=== PATIENT | female | born 1975 | race Caucasian/White ===

== ENCOUNTER 2025-03-11 11:47 | Day surgery (SDC) | payer OTHER, SELFPAY ==
[2025-03-09 08:07] VITALS: BMI 26.4
[2025-03-11] VITALS (15 sets, daily range): BP systolic 105–124; BP diastolic 56–92; PULSE 71–102; RESP 10–20; TEMP 36.3–37.3; O2SAT 94–100; BMI 25.8
[2025-03-11] MEDS: LACTATED RINGERS 1,000 ML 42 ML IV (13:07)
--- NOTE | 2025-03-11 13:21 | PM.PREOP ---
Pre-operative Note Interval Note History & Physical reviewed/Exam performed by Physician: Yes Changes to H&P: No H&P completed within 30 days and has changed as indicated here:: see H&P from 03/02/25; procedure consented for is TVH/BS with possible anterior repair, possible posterior repair, possible apical suspension, with midurethral sling
[2025-03-11] MEDS: CEFAZOLIN 2 GM/100 ML PREMIX 100 ML IV (14:42)
--- NOTE | 2025-03-11 14:58 | SUR.OPER ---
Lithotomy on padded OR bed. Selma Pad Positioner under torso. Head on pillow, arms padded and tucked at sides. Legs secured in padded yellow fins stirrups.
[2025-03-11] MEDS: LIDOCAINE 1% W/EPI 10ML 20 ML INJ ×2 (15:11→16:05)
--- NOTE | 2025-03-11 17:13 | P.OP_ITS ---
Operative Date/Time/Diagnoses Date of procedure: 03/11/25 Time of procedure: 15:00 Pre-op diagnosis: Abnormal uterine bleeding Presumed adenomyosis Uterine fibroids Stage 2 pelvic organ prolapse Stress urinary incontinence Post-op diagnosis: same Procedure & Clinicians Procedure: Total vaginal hysterectomy Bilateral salpingectomy Midurethral sling Cystoscopy Posterior colporrhaphy Same procedure as scheduled: Yes Indications: 49yo F with AUB-A/L, stage 2 POP, and KOJO, counseled and consented for the above procedures. Surgeon: Janice Alicea Heel Cementer Machine: Devan Hooper Click Yes if Unassisted: No Anesthesia Type: General Operative Notes Findings: 12wk sized uterus with normal appearing bilateral fallopian tubes with benign appearing paratubal cysts. Cystoscopy: normal bladder mucosa, bilateral efflux of urine from ureteral orifices, no evidence of retained suture or defects in the bladder Specimen(s): none sent (patient declined pathology evaluation and requested to keep her specimen) Applied: catheter Estimated Blood Loss (mL): 100 Blood products transfused: none Procedure in detail: The risks, benefits, indications and alternatives of the procedure were reviewed with the patient and informed consent was obtained. The patient was taken to the operating room where general anesthesia was obtained without difficulty. The pt was then placed in the high lithotomy position using Tigre stirrups. Sequential compression devices were placed bilaterally for VTE prophylaxis. Pt was then prepped and draped in the sterile fashion and a Cedillo catheter was placed. A weighted speculum was placed in the patient?s vagina and the cervix was visualized. A double-toothed tenaculum was used to grasp the anterior and posterior lips of the cervix. 10cc of 1% lidocaine with epinephrine was then injected circumferentially in the cervix for hydrodissection. The cervix was then incised circumferentially superficially using the Bovie cautery. The posterior fornix was grasped with pick-ups and the abdominal cavity was entered posteriorly with Morrison scissors. The posterior peritoneum was then tagged to the vaginal mucosa with 0-Vicryl. The weighted speculum was then placed in the posterior cul-de-sac for adequate visualization while displacing the rectum. The uterosacral ligaments were then clamped with David clamps on both sides, transected, and suture ligated with 0-Vicryl bilaterally. The anterior vaginal mucosa was then dissected off the cervix sharply. An attempt at entering the anterior cul-de-sac with Metzenbaum scissors was performed, but unsuccessful as there was still a significant amount of vaginal mucosa present anteriorly. Decision was made to proceed with mobilization of the uterus and cervix instead. The cardinal ligaments were clamped with Ligasure impact on both sides, cauterized and cut. After additional mobility was achieved, attention was then redirected to the anterior cul-de-sac, which was entered with sharp dissection. Pedicles were cauterized and cut serially bilaterally to continue removal of the uterus. To achieve better mobilization, the uterus was bivalved. The right cornua was then visualized, clamped with a David clamp, then suture ligated. The right uterus/cervix was then removed. The right fallopian tube was visualized, and was removed with the Ligasure. The left uterine cornua was then visualized, clamped with a David clamp, then suture ligated. The left uterus/cervix subsequently delivered without difficulty. The left fallopian tube was visualized, and was removed with the Ligasure. Reinspection of all pedicles revealed adequate hemostasis. The vaginal cuff was then closed using [id number] sutures of 0-vicryl, ensuring that the peritoneum was incorporated. The pedicles of the uterosacral ligaments were incorporated into the vaginal cuff closure. Inspection of the cuff assured hemostasis. Given the patient's findings of genuine stress incontinence, attention was turned to the TVT procedure. Local anesthetic was injected suprapubically into the skin and retropubic space on both sides of the midline. Using gentle traction on the Cedillo catheter to identify the bladder neck, local anesthetic was injected into the vaginal mucosa and submucosal tissues in the midline and bilaterally at the level of the mid urethra. A 2 cm sagittal incision was then made in the midline of the anterior vaginal wall 1 cm proximal to the external urethral meatus. The Metzenbaum scissors were then used to free the vaginal wall from the urethra and develop a small paraurethral space bilaterally. The needle tip of the TVT device attached to the introducer was inserted into the previously developed paraurethral space on the patient's right side.? The needle was angulated slightly laterally and the endopelvic fascia was perforated just behind the inferior surface of the pubic symphysis.? The handle of the introducer was dropped and the needle guided medially up through the abdominal wall. The same procedure was then completed on the patient's left side. The Cedillo catheter was then removed and cystoscopy was performed to exclude unintentional bladder perforation.? After bladder integrity was confirmed, the introducers were passed completely through the abdominal incisions.? After passage of the needles was completed, a hemostat was inserted between the suburethral portion of the tape and the urethra.? Gentle traction on the ab dominal ends of the tape relieved any excess tape material and brought the tape into contact with the instrument.? With the hemostat between the urethra and the tape, the plastic sheet was removed in the usual fashion. After removal of the sheath, a 1-2 mm space between the tape and urethra was noted. The mesh was then trimmed at the abdominal wall, and the incisions were covered with Dermabond. The vaginal mucosa was then closed with a running 2-0 vicryl suture. Attention was turned to the posterior repair.? A midline mucosal incision was then made from the perineum to the proximal border of the rectocele.? The vaginal mucosa was then dissected off the underlying rectovaginal fascia and rectocele bilaterally to the levator ani using Metzenbaum scissors. The rectovaginal septum was then plicated in the midline using interrupted 2-0 suture.? The vaginal mucosa was then closed with a running 2-0 vicryl suture. Hemostasis was assured along all of the suture lines, and all instruments were removed from the patient?s vagina. At the completion of the case the sponge and needle counts were correct x 2. The patient was taken to the PACU in stable condition. Complications: none Post-operative Condition: stable Disposition: PACU Plan for aftercare: Discharge to home in the morning.
[2025-03-11] MEDS: ONDANSETRON 4 MG/2 ML INJ IV ×2 (17:24→21:31)
[2025-03-11] MEDS: hydrOXYzine 50 MG/ML INJ IM (17:34)
[2025-03-11] MEDS: ACETAMINOPHEN IV 1,000 MG/100 ML VIAL 400 MG IV (17:34)
[2025-03-11] MEDS: HALOPERIDOL 5 MG/ML VIAL 2 MG IV (17:42)
[2025-03-11] MEDS: OXYCODONE IR 5 MG TABLET PO (18:39)
[2025-03-11] MEDS: DOCUSATE 100 MG CAPSULE 200 MG PO (20:34)
[2025-03-12] MEDS: ACETAMINOPHEN 325 MG TABLET 650 MG PO ×3 (00:16→12:41)
[2025-03-12] MEDS: OXYCODONE IR 5 MG TABLET PO ×3 (00:17→15:11)
[2025-03-12] MEDS: KETOROLAC 30 MG/ML VIAL IV ×3 (00:17→12:41)
[2025-03-12 04:23] VITALS: BP 103/65; PULSE 87; RESP 16; TEMP 37.3; O2SAT 96
[2025-03-12] MEDS: SODIUM CHLORIDE 0.9% FLUSH 10 ML IV ×2 (05:35→10:22)
--- NOTE | 2025-03-12 06:10 | PC.NURSE ---
hearing aid assistant Cedillo cath removed by OTOLARYNGOLOGY SURGEON, patient tolerated very well without complaint.
[2025-03-12 08:00] VITALS: BP 114/82; PULSE 77; RESP 18; TEMP 36.7; O2SAT 96
--- NOTE | 2025-03-12 08:04 | PM.DS.IH.1 ---
History of Present Illness History of Present Illness Date Patient Seen: 03/12/25 Time Patient Seen: 07:45 Chief complaint: Vaginal Hysterectomy/Colporrhaphy/Anterior/Posteri Discharge Providers Provider Discharge Date: 03/12/25 Primary care physician: Daniel Woodard MD Discharge provider: Janice Alicea DO Summary Hospital Course Discharge Diagnosis: Abnormal uterine bleeding Stage II pelvic organ prolapse Stress urinary incontinence Hospital Course: 49-year-old female admitted for planned TVH/BS/prolapse repair/mid urethral sling. Her procedure was uncomplicated. By the next morning after surgery, she was ambulating, tolerating regular diet, voiding spontaneously, with minimal vaginal bleeding. Thus she was discharged to home on postoperative day #1. Status at Discharge Cognitive/behavioral status at discharge: oriented Functional status at discharge: independent ambulation Overall status at discharge: patient is progressing back to baseline Time Spent with Patient Time spent: Less than 30 minutes Exam Vital Signs (past 8 hours): - 03/12/25 04:23 Temperature 99.2 F Pulse Rate 87 Respiratory Rate 16 Blood Pressure 103/65 Pulse Oximetry 96 Oxygen Flow Rate 0 Oxygen Delivery Method Room Air Oxygen Flow Rate 0 Const General: healthy appearing, comfortable and No acute distress Resp Effort & Inspection: normal respiratory effort and able to speak in complete sentences Other: deferred Skin General: no rashes or lesions noted Neuro Cognition: normal cognition Speech: speech normal Extrem General: normal to inspection Psych Mood: congruent mood Affect: normal affect [facility] Medical History Mixed stress and urge urinary incontinence Pelvic organ prolapse quantification stage 2 cystocele Abnormal uterine bleeding due to adenomyosis Dermoid cyst of ovary Anemia Vaginal delivery Surgical History (Updated 09/21/24 @ 16:42 by Janice Alicea DO) History of ovarian cystectomy Status post dilation and curettage (11/09/16) Family History Father Hypertension High cholesterol Mental health problem Grandfather Cancer Grandmother Cancer Heart disease High cholesterol Stroke Sister Age: 51 Diabetes mellitus Mental health problem Social History household members: family Smoking Status: Former smoker alcohol intake: never substance use type: does not use Discharge Plan Discharge Plan Patient Disposition: Home Provider Discharge Comment: Take ibuprofen 600mg every 6hrs and acetaminophen 650mg every 6hrs. Use oxycodone 5mg every 4hrs as needed for severe pain. You should expect light vaginal bleeding for a few days. If you have heavy vaginal bleeding, then please call. Avoid placing anything in the vagina for at least 6 weeks. Discharge orders & Medications Discharge Orders: Discharge (Order); Ordered 03/12/25 Ordered By: Janice Alicea Prescriptions: New oxycodone 5 mg Tablet 5 mg PO Q4HR PRN (Reason: Pain, Moderate (4-6)) Qty: 10 0RF Continued albuterol sulfate 90 mcg/actuation HFA aerosol inhaler 1 puff inhalation PRN PRN (Reason: asthma) progesterone micronized 100 mg capsule 0.5 mg PO QAM Rx Instructions: off 7 days; repeat cycle pantoprazole 40 mg tablet,delayed release (DR/EC) 40 mg PO DAILY Follow up/Referrals: Janice Alicea, [Physician] - (Follow-up in clinic as scheduled.) Diet/Activity/Treatments Diet: Diet as Tolerated Activity: As tolerated. Skin/Wound/Dressing Care Report to your healthcare provider any signs of infection, such as:: chills, fever, increased pain and unusual drainage Visit Report/Discharge Packet Instructions: DI for Cystocele and Rectocele Repair, DI for Hysterectomy, Urethral Suspension -- Sling Procedure, DI for Prescription Opioid Use Stand Alone Forms: Patient Portal/API Discharge Data Primary Care Provider: Daniel Woodard Attending Provider: Janice Alicea PROFEE Charge Codes Discharge inpatient/observation: [id number]
[2025-03-12] MEDS: DOCUSATE 100 MG CAPSULE 200 MG PO (10:21)
[2025-03-12] MEDS: PANTOPRAZOLE DR 40 MG TABLET PO (10:21)
--- NOTE | 2025-03-12 10:28 | CM.DANOTE ---
DCP Assessment Note: Pt is a 49yo female, resident of [place], is s/p total hysterectomy. Pt's Primary Care Provider is Dr. Daniel Woodard and insurance is [employer] ([employer]). Reviewed chart and discussed with multidisciplinary team pt's medical status and initial discharge needs. DCP met w/patient at bedside; introduced self and role. Patient was found in bed, alert and oriented, cooperative with assessment. Pt confirmed living situation and good support in friends/neighbors. Pt expressed preference in discharge home, no needs identified. Pt requesting for staff to be aware that she needs to stop at the Center before dc to picker machine operator some belongings. Pt confirms that her friend, Jeaneth, will transport her back home and [place] already [place] ferry reservation. Plan: Anticipating dc home with friend to transport at approximately 3pm. CM team will follow closely for coordination of discharge plans. JAX Andrade Discharge Planning/Care Management CM Discharge Assessment Start: 03/12/25 10:24 Freq: Status: Active Protocol: Document 03/12/25 10:25 MW (Rec: 03/12/25 10:26 MW [id number]) Discharge Planning Assessment Assigned Digital Sales Representative GIANFRANCO Nelson Advance Directives? No History Provided By Patient,Medical Record Has Patient been admitted in last 30 No days? Prior Living Arrangements House Comment Saturday Household Members family Type of transporation used prior to Drives own vehicle admit Independent with ADL's Yes Is patient alert and oriented? Yes Caregiver for Another No Comment Home Barriers to Discharge No Discharge Plan Home Transportation Arrangement Friend, Jeaneth. Pt states she has reservations for the [place] . Referrals Initiated None needed Whiteboard Updated in Patient Room with Yes name and ext. # of Digital Sales Representative Comment [phone] Review Status In Process Please Provide Date Initial DC 03/12/25 Assessment Was Performed Next Review Type Continued Stay Review
--- NOTE | 2025-03-12 16:46 | PC.NURSE ---
Pt discharged at 1523, escorted off floor in wheelchair accompanied by hospital staff. IV removed, discharge teaching completed including new medications, wound care and follow up appointments. Questions answered. Patient left the floor with all belongings including specimen retrieved from the center.
== END 2025-03-12 15:23 | disposition home or self-care (01) ==
LOC: OR 11:48 → AC 14:46
PROVIDERS: PCP Student in an Organized Health Care Education/Training Program; Referring Provider Student in an Organized Health Care Education/Training Program; Visit Provider Student in an Organized Health Care Education/Training Program
PROC: (CPT 58260; principal; 2025-03-11 13:15)
PROC: (CPT 58262; 2025-03-11 13:15)
PROC: 0TSD0ZZ Reposition Urethra, Open Approach (ICD-10-PCS; CPT 58262; 2025-03-11 13:15)
DX: N93.9 Abnormal uterine and vaginal bleeding, unspecified (principal); N81.2 Incomplete uterovaginal prolapse; N39.46 Mixed incontinence; N83.8 Other noninflammatory disorders of ovary, fallopian tube and broad ligament
CPT/HCPCS: 58262; 57250; 57288; C1771; J0131; J0690; J1100; J1171; J1630; J1885; J2250; J2405; J2704; J3010; J3410